=== PATIENT | male | born 1945 | race Two or more races ===

== ENCOUNTER → 2016-10-17 | Outpatient (REF) | payer MEDICARE ==
[2016-10-17 14:19] LABS: VITAMIN B12 LEVEL 499 PG/ML
[2016-10-17 14:20] LABS: FOLATE > 24.0 NG/ML; TOTAL PROTEIN 6.9 GM/DL (6.4-8.2)
[2016-10-18 12:59] LABS: ALBUMIN 4.39 GM/DL (3.29-5.55); ALBUMIN % 63.6 % (55.8-66.1); GAMMA GLOBULIN % 10.8 % (11.1-18.8)
[2016-10-21 00:10] LABS: VITAMIN E LEVEL 10.4 mg/L (5.3-17.5)
== END ==
LOC: M LABNEURO 13:21
PROVIDERS: ATTEND Psychiatry & Neurology Neurology
DX: G62.9 Polyneuropathy, unspecified (principal); R25.1 Tremor, unspecified; Z79.899 Other long term (current) drug therapy

== ENCOUNTER → 2017-01-29 | Outpatient (REF) | payer MEDICARE ==
[2017-01-29 18:49] LABS: CALCIUM OXALATE CRYSTALS SMALL
== END ==
LOC: M SMT 17:13
PROVIDERS: ATTEND Nurse Practitioner Women's Health
DX: Q61.00 Congenital renal cyst, unspecified (principal); Z79.899 Other long term (current) drug therapy; Z87.891 Personal history of nicotine dependence
CPT/HCPCS: 81001; 87086; G0463